=== PATIENT | male | born 1985 | race Caucasian/White ===

== ENCOUNTER → 2021-10-22 | Outpatient (CLI) | payer OTHER ==
[~2021-10-22] MED LIST: Zofran Odt4 MG PO
== END ==
LOC: LAB SHORT 09:07 → LAB 09:07
DX: A38.9 Scarlet fever, uncomplicated (principal); J02.9 Acute pharyngitis, unspecified
CPT/HCPCS: 87081

== ENCOUNTER 2024-04-27 12:35 | Emergency (ER) | payer OTHER ==
[~2024-04-27] VITALS: Ht 182.9 cm; Wt 99.8 kg
[2024-04-27 17:48] LABS: BASOPHILS ABSOLUTE AUTO 0.01 K/mm3 (0.00-0.23); BASOPHILS PERCENT AUTO 0 % (0-2); EOSINOPHILS PERCENT AUTO 0 % (0-6); Hematocrit 43.1 % (37.0-53.0); Hemoglobin 15.2 g/dL (13.5-17.5); IMMATURE GRAN ABSOLUTE AUTO 0.02 K/mm3 (0.00-0.10); IMMATURE GRAN PERCENT AUTO 0 % (0-1); LYMPHOCYTES ABSOLUTE AUTO 0.76 K/mm3 (0.84-5.20); LYMPHOCYTES PERCENT AUTO 8 % (21-46); MONOCYTES ABSOLUTE AUTO 0.57 K/mm3 (0.16-1.47); MONOCYTES PERCENT AUTO 6 % (4-13); Mean Corpuscular HGB 31.7 pg (26.0-34.0); Mean Corpuscular HGB Conc 35.3 g/dL (31.5-36.5); Mean Corpuscular Volume 90 fL (80-100); Mean Platelet Volume 10.4 fL (9.1-12.4); NEUTROPHILS ABSOLUTE AUTO 7.87 K/mm3 (1.96-9.15); NEUTROPHILS PERCENT AUTO 85 % (41-73); Platelet Count 210 K/mm3 (150-400); RDW Coefficient Variation 12.4 % (11.7-14.2); Red Blood Cell Count 4.79 M/mm3 (4.30-5.90); White Blood Cell Count 9.23 K/mm3 (4.00-11.30)
[2024-04-27] MEDS ORDERED: NS 1,000 ML IV SCH (18:05)
[2024-04-27 18:15] LABS: Albumin, Blood 3.8 g/dL (3.4-5.0); Bilirubin, Total 0.9 mg/dL (0.1-1.0); Bun/Creatinine Ratio 19.5 (12.0-20.0); Calcium, Blood 8.4 mg/dL (8.5-10.1); Creatinine, Blood 0.92 mg/dL (0.60-1.20); Globulin, Blood 3.7 g/dL (2.2-4.0); Potassium, Blood 3.5 mmol/L (3.5-5.5); Total Protein, Blood 7.5 g/dL (6.4-8.2)
[2024-04-27 18:29] LABS: Source, Urine Clean Catch
[2024-04-27 18:40] LABS: CORONAVIRUS COVID-19 AG Negative (NEGATIVE); INFLUENZA A AG Negative (NEGATIVE); INFLUENZA B AG Negative (NEGATIVE)
[2024-04-27 18:45] LABS: Appearance, Urine Clear (Clear); Bilirubin, Urine Neg (Neg); Blood, Urine Neg (Neg); Color, Urine Yellow (P-Yellow); Glucose Qualitative, Urine Neg (Neg); Ketones, Urine 4+ (Neg); Leukocyte Esterase, Urine Neg (Neg); Nitrite, Urine Neg (Neg); Protein, Urine 2+ (Neg); Urobilinogen, Urine 2+ (Normal)
[2024-04-27 19:08] LABS: Bacteria Few /hpf; Mucus Light (0-Heavy); Red Blood Cells, Urine Not Seen /hpf (0-2); Squamous Epithelial Cells Rare /hpf (Few); White Blood Cells, Urine 0-2 /hpf (0-5)
[2024-04-27] MEDS ORDERED: ONDA4ODT MM (20:29)
[2024-04-27] MEDS ORDERED: CIPR500 PO (20:29)
[2024-04-27 20:30] VITALS: BP 134/100
[2024-04-27] MEDS ORDERED: Ciprofloxacin 500 MG Tab PO ONE (20:30)
== END 2024-04-27 20:57 | disposition home or self-care (01) ==
LOC: ER 12:35
PROVIDERS: Physician Assistant; Student in an Organized Health Care Education/Training Program
DX: A09 Infectious gastroenteritis and colitis, unspecified (principal); I10 Essential (primary) hypertension; Z90.49 Acquired absence of other specified parts of digestive tract; Z59.89 Other problems related to housing and economic circumstances
CPT/HCPCS: 74177; 80053; 81001; 83690; 85025; 87428-QW; 96360-59; 99284-25; A9270; J7030; Q9967